=== PATIENT | male | born 2005 | race Caucasian/White ===

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

== ENCOUNTER 2024-07-11 10:58 | Emergency (ER) | payer BC ==
[2024-07-11 11:09] VITALS: BP 129/68; PULSE 96
== END 2024-07-11 11:38 | disposition home or self-care (01) ==
LOC: MW.ED 10:58
DX: S05.12XA Contusion of eyeball and orbital tissues, left eye, initial encounter (principal); M95.0 Acquired deformity of nose; Z75.8 Other problems related to medical facilities and other health care; W50.0XXA Accidental hit or strike by another person, initial encounter
CPT/HCPCS: 99283